=== PATIENT | male | born 1980 | race Caucasian/White ===

== ENCOUNTER 2016-09-29 22:34 | Emergency (ER) | payer MEDICAID ==
[2016-09-29 23:24] VITALS: BP 147/90
== END 2016-09-29 23:24 | disposition home or self-care (01) ==
LOC: ED 22:34
DX: H60.91 Unspecified otitis externa, right ear (principal)
CPT/HCPCS: J0696; J1885

== ENCOUNTER 2017-11-03 08:29 | Emergency (ER) | payer MEDICAID ==
[~2017-11-03] VITALS: Ht 177.8 cm; Wt 97.5 kg
[2017-11-03 08:41] VITALS: Ht 177.8 cm; Wt 97.5 kg
[2017-11-03 09:42] VITALS: BP 122/88
== END 2017-11-03 09:42 | disposition home or self-care (01) ==
LOC: ED 08:29
DX: J02.9 Acute pharyngitis, unspecified (principal); H60.92 Unspecified otitis externa, left ear

== ENCOUNTER 2017-11-29 19:24 | Emergency (ER) | payer MEDICAID ==
[~2017-11-29] VITALS: Ht 175.3 cm; Wt 97.5 kg
[2017-11-29 19:32] VITALS: Ht 175.3 cm; Wt 97.5 kg
[2017-11-29 21:15] VITALS: BP 149/66
== END 2017-11-29 21:15 | disposition home or self-care (01) ==
LOC: ED 19:24
DX: H66.91 Otitis media, unspecified, right ear (principal); H60.92 Unspecified otitis externa, left ear; R03.0 Elevated blood-pressure reading, without diagnosis of hypertension

== ENCOUNTER 2018-08-17 15:17 | Emergency (ER) | payer MEDICAID ==
[~2018-08-17] VITALS: Ht 177.8 cm; Wt 95.3 kg
[2018-08-17 15:19] VITALS: BP 168/108; Ht 177.8 cm; Wt 95.3 kg
== END 2018-08-17 18:15 | disposition home or self-care (01) ==
LOC: ED 15:17
DX: S61.012A Laceration without foreign body of left thumb without damage to nail, initial encounter (principal); W45.8XXA Other foreign body or object entering through skin, initial encounter; Y93.89 Activity, other specified; Y92.89 Other specified places as the place of occurrence of the external cause; Y99.8 Other external cause status
CPT/HCPCS: J2001

== ENCOUNTER 2018-11-08 21:24 | Emergency (ER) | payer MEDICAID ==
[~2018-11-08] VITALS: Ht 175.3 cm; Wt 100.7 kg
[2018-11-08 21:30] VITALS: Ht 175.3 cm; Wt 100.7 kg
[2018-11-08 22:28] VITALS: BP 143/80
== END 2018-11-08 22:28 | disposition home or self-care (01) ==
LOC: ED 21:24
DX: B07.9 Viral wart, unspecified (principal); R03.0 Elevated blood-pressure reading, without diagnosis of hypertension

== ENCOUNTER 2019-09-10 01:49 | Emergency (ER) | payer MEDICAID ==
[~2019-09-10] VITALS: Ht 175.3 cm; Wt 98.0 kg
[2019-09-10 01:58] VITALS: Ht 175.3 cm; Wt 98.0 kg
[2019-09-10 04:21] VITALS: BP 135/84
== END 2019-09-10 04:21 | disposition home or self-care (01) ==
LOC: ED 01:49
DX: M25.571 Pain in right ankle and joints of right foot (principal)
CPT/HCPCS: Q0092